=== PATIENT | male | born 1965 | race Caucasian/White ===

== ENCOUNTER 2019-12-25 13:15 | Inpatient (IN) ==
[2019-12-25] MEDS ORDERED: *HR* Heparin 5,000 UNIT/ML VIAL IVP PRN ×2 (13:28)
[2019-12-25] MEDS ORDERED: *HR* Heparin 5,000 UNIT/ML VIAL IVP ONE (13:28)
[2019-12-25] MEDS ORDERED: *HR* Metoprolol 5 MG/5 ML VIAL IVP ONE (13:28)
[2019-12-25] MEDS ORDERED: Heparin 25,000UNIT/250ML 1/2NS 25,000 UNIT/250 ML IV.SOLN IVC SCH (13:30)
[2019-12-25] MEDS ORDERED: *HR* Ticagrelor 90 MG TABLET PO ONE (13:34)
[2019-12-25] MEDS ORDERED: Nitroglycerin 1,000 MCG/10 ML VIAL IV ONE (13:37)
[2019-12-25] MEDS ORDERED: Heparin 1,000 UNITS/500 mL 500 ML ONE (13:37)
[2019-12-25] MEDS ORDERED: 0.9 % Sodium Chloride 2,000 ML ONE (13:37)
[2019-12-25] MEDS ORDERED: *HR* Heparin 10,000 UNIT/10 ML VIAL ONE (13:37)
[2019-12-25] MEDS ORDERED: ISOVUE-370 200 ML INFUS..BTL ONE ×2 (13:37→14:10)
[2019-12-25 13:43] LABS: Hematocrit 46.8 % (37.5-50.1); Hemoglobin 15.2 g/dL (12.9-16.9); Mean Corpuscular HGB Conc 32.5 g/dL (31.6-35.5); Mean Corpuscular Hemoglobin 29.5 pg (28.0-33.3); Mean Corpuscular Volume 90.7 fL (83.0-100.0); Mean Platelet Volume 10.5 fL (9.4-12.4); Platelet Count 202 K/mcL (140-400); Red Blood Count 5.16 M/mcL (4.19-5.50); Red Cell Distribution Width 13.7 % (11.5-14.5); White Blood Count 9.5 K/mcL (4.3-11.1)
[2019-12-25] MEDS ORDERED: *HR* FentaNYL (PF) 100 MCG/2 ML VIAL ONE (13:54)
[2019-12-25] MEDS ORDERED: *HR* Midazolam HCl 2 MG/2 ML VIAL ONE (13:54)
[2019-12-25 13:55] LABS: Prothrombin Time 11.2 Seconds (9.4-12.1)
[2019-12-25 13:57] LABS: Heparin anti-factor XA UFH < 0.04 IU/mL (0.30-0.70)
[2019-12-25] MEDS ORDERED: Perflutren Lipid Microsphere 1.3 ML in 0.9 % Sodium Chloride 8.7 ML IVP PRN (14:15)
[2019-12-25] MEDS ORDERED: *HR* Ticagrelor 90 MG TABLET ONE (14:21)
[2019-12-25] MEDS ORDERED: *HR* Bivalirudin 250 MG VIAL IVC ONE ×3 (14:29→14:34)
[2019-12-25 15:36] LABS: Adenovirus Not Detected (Not Detect); Bordetella Pertussis Not Detected (Not Detect); Chlamydophila pneumoniae Not Detected (Not Detect); Coronavirus 229E Not Detected (Not Detect); Coronavirus HKU1 Not Detected (Not Detect); Coronavirus NL63 Not Detected (Not Detect); Coronavirus OC43 Not Detected (Not Detect); Human Metapneumovirus Not Detected (Not Detect); Human Rhinovirus/Enterovirus Not Detected (Not Detect); Influenza A Subtype 2009 H1 Not Detected (Not Detect); Influenza B Not Detected (Not Detect); Mycoplasma pneumoniae Not Detected (Not Detect); Parainfluenza Virus 1 Not Detected (Not Detect); Parainfluenza Virus 2 Not Detected (Not Detect); Parainfluenza Virus 3 Not Detected (Not Detect); Parainfluenza Virus 4 Not Detected (Not Detect); Respiratory Syncytial Virus Not Detected (Not Detect); SARS-CoV-2 Not Detected (Not Detect)
[2019-12-25] MEDS ORDERED: Nitroglycerin 0.4 MG TAB.SUBL SL PRN (15:47)
[2019-12-25] MEDS ORDERED: 0.9 % Sodium Chloride 1,000 ML IVC SCH (16:00)
[2019-12-25] MEDS ORDERED: Oxymetazoline Nasal SPRAY BOTTLE NS PRN (16:53)
[2019-12-25] MEDS ORDERED: *HR* Atropine Sulfate 1 MG/10 ML SYRINGE ONE (17:21)
[2019-12-25] MEDS ORDERED: 0.9 % Sodium Chloride 250 ML IVC SCH (20:15)
[2019-12-25] MEDS ORDERED: Morphine Sulfate 2 MG/ML SYRINGE IVP ONE (20:36)
[2019-12-25] MEDS ORDERED: Ondansetron 4 MG/2 ML VIAL ONE (20:48)
[2019-12-25] MEDS ORDERED: Ondansetron 4 MG/2 ML VIAL IVP ONE (20:56)
[2019-12-25] MEDS ORDERED: *HR* Ticagrelor 90 MG TABLET PO SCH (21:00)
[2019-12-25 21:08] LABS: Basophils % 0.1 %; Eosinophils % 0.3 %; Hematocrit 41.6 % (37.5-50.1); Hemoglobin 13.8 g/dL (12.9-16.9); Immature Granulocytes % 0.5 % (0-4); Lymphocytes # 2.1 K/mcL (0.6-4.6); Lymphocytes % 15.2 %; Mean Corpuscular HGB Conc 33.2 g/dL (31.6-35.5); Mean Corpuscular Hemoglobin 29.5 pg (28.0-33.3); Mean Corpuscular Volume 88.9 fL (83.0-100.0); Mean Platelet Volume 10.5 fL (9.4-12.4); Monocytes # 1.2 K/mcL (0.0-1.3); Monocytes % 8.6 %; Neutrophils # 10.2 K/mcL (1.6-8.9); Platelet Count 232 K/mcL (140-400); Red Blood Count 4.68 M/mcL (4.19-5.50); Segmented Neutrophils % 75.3 %; White Blood Count 13.5 K/mcL (4.3-11.1)
[2019-12-25] MEDS ORDERED: Ondansetron 4 MG/2 ML VIAL IVP SCH (22:45)
[2019-12-25] MEDS ORDERED: Ondansetron 4 MG/2 ML VIAL IVP PRN (22:50)
[2019-12-25] MEDS: Morphine Sulfate 2 MG/ML SYRINGE IVP PRN (22:53)
[2019-12-25] MEDS: lisinopriL 10 MG TABLET PO SCH (22:57)
[2019-12-25] MEDS: carvediloL 6.25 MG TABLET PO SCH (22:57)
[2019-12-26 00:25] LABS: Hematocrit 37.5 % (37.5-50.1); Hemoglobin 12.8 g/dL (12.9-16.9)
[2019-12-26] MEDS: ceFAZolin 1,000 MG in 0.9 % Sodium Chloride Mini Bag 100 ML IVP SCH ×4 (00:40→23:50)
[2019-12-26 06:10] LABS: Basophils % 0.1 %; Eosinophils % 0.1 %; Immature Granulocytes % 0.4 % (0-4); Lymphocytes # 2.2 K/mcL (0.6-4.6); Lymphocytes % 15.3 %; Mean Corpuscular HGB Conc 32.2 g/dL (31.6-35.5); Mean Corpuscular Hemoglobin 29.2 pg (28.0-33.3); Mean Corpuscular Volume 90.9 fL (83.0-100.0); Mean Platelet Volume 10.9 fL (9.4-12.4); Monocytes # 1.4 K/mcL (0.0-1.3); Monocytes % 9.9 %; Neutrophils # 10.6 K/mcL (1.6-8.9); Platelet Count 192 K/mcL (140-400); Red Blood Count 4.07 M/mcL (4.19-5.50); Red Cell Distribution Width 14.1 % (11.5-14.5); Segmented Neutrophils % 74.2 %; White Blood Count 14.3 K/mcL (4.3-11.1)
[2019-12-26 06:12] LABS: Hemoglobin 11.9 g/dL (12.9-16.9)
[2019-12-26 06:36] LABS: BUN/Creatinine Ratio 34 (6-26); Blood Urea Nitrogen 30 mg/dL (6-20); Calcium 8.3 mg/dL (8.6-10.3); Carbon Dioxide 21 mEq/L (23-29); Chloride 107 mEq/L (98-107); Chol/HDL Ratio 4.8 (0-4.9); Glucose 111 mg/dL (70-105); Osmolality,Calculated 293 (280-300); Potassium 3.5 mEq/L (3.5-5.1); Sodium 138 mEq/L (136-145); eGFR For African Americans > 60 (> 60); eGFR For Non-African Americans > 60 (> 60)
[2019-12-26] MEDS ORDERED: *HR* Metoprolol 5 MG/5 ML VIAL IVP ONE (08:35)
[2019-12-26] MEDS ORDERED: lisinopriL 5 MG TABLET PO SCH (09:00)
[2019-12-26] MEDS: *HR* Ticagrelor 90 MG TABLET PO SCH ×3 (09:05→19:55)
[2019-12-26] MEDS: Aspirin 81 MG TAB.CHEW PO SCH ×2 (09:11→09:26)
[2019-12-26] MEDS: lisinopriL 10 MG TABLET PO SCH (09:26)
[2019-12-26] MEDS: carvediloL 6.25 MG TABLET PO SCH ×2 (09:26→16:22)
[2019-12-26] MEDS: Morphine Sulfate 2 MG/ML SYRINGE IVP PRN ×3 (11:57→19:58)
[2019-12-26 15:22] LABS: Hematocrit 34.4 % (37.5-50.1); Hemoglobin 11.1 g/dL (12.9-16.9)
[2019-12-27 05:42] LABS: Hematocrit 31.3 % (37.5-50.1); Hemoglobin 10.2 g/dL (12.9-16.9); Mean Corpuscular HGB Conc 32.6 g/dL (31.6-35.5); Mean Corpuscular Hemoglobin 30.4 pg (28.0-33.3); Mean Corpuscular Volume 93.2 fL (83.0-100.0); Mean Platelet Volume 11.2 fL (9.4-12.4); Platelet Count 155 K/mcL (140-400); Red Blood Count 3.36 M/mcL (4.19-5.50); Red Cell Distribution Width 14.4 % (11.5-14.5); White Blood Count 14.6 K/mcL (4.3-11.1)
[2019-12-27 06:02] LABS: BUN/Creatinine Ratio 16 (6-26); Blood Urea Nitrogen 13 mg/dL (6-20); Calcium 8.5 mg/dL (8.6-10.3); Carbon Dioxide 24 mEq/L (23-29); Chloride 104 mEq/L (98-107); Glucose 106 mg/dL (70-105); Osmolality,Calculated 283 (280-300); Potassium 3.7 mEq/L (3.5-5.1); Sodium 136 mEq/L (136-145); eGFR For African Americans > 60 (> 60); eGFR For Non-African Americans > 60 (> 60)
[2019-12-27 06:07] LABS: Troponin I 13.43 ng/mL (< 0.04)
[2019-12-27] MEDS: carvediloL 6.25 MG TABLET PO SCH ×2 (08:12→16:15)
[2019-12-27] MEDS: ceFAZolin 1,000 MG in 0.9 % Sodium Chloride Mini Bag 100 ML IVP SCH ×3 (08:12→23:17)
[2019-12-27] MEDS: Aspirin 81 MG TAB.CHEW PO SCH (08:12)
[2019-12-27] MEDS: *HR* Ticagrelor 90 MG TABLET PO SCH ×2 (08:13→19:37)
[2019-12-27] MEDS: lisinopriL 10 MG TABLET PO SCH (08:13)
[2019-12-27] MEDS ORDERED: Saline Nasal Spray 44 ML BOTTLE NS SCH (09:30)
[2019-12-27] MEDS ORDERED: Ondansetron 4 MG/2 ML VIAL IVP PRN (10:56)
[2019-12-27] MEDS ORDERED: Morphine Sulfate 2 MG/ML SYRINGE IVP PRN (10:56)
[2019-12-27] MEDS ORDERED: Nitroglycerin 0.4 MG TAB.SUBL SL PRN (10:56)
[2019-12-27] MEDS ORDERED: Oxymetazoline Nasal SPRAY BOTTLE NS PRN (10:56)
[2019-12-27] MEDS ORDERED: carvediloL 6.25 MG TABLET PO ONE ×2 (11:15→17:00)
[2019-12-27] MEDS: Saline Nasal Spray 44 ML BOTTLE NS SCH ×2 (15:24→19:37)
[2019-12-27] MEDS ORDERED: carvediloL 6.25 MG TABLET PO SCH (17:00)
[2019-12-28 04:52] LABS: Hematocrit 30.1 % (37.5-50.1); Hemoglobin 9.7 g/dL (12.9-16.9); Mean Corpuscular HGB Conc 32.2 g/dL (31.6-35.5); Mean Corpuscular Hemoglobin 29.9 pg (28.0-33.3); Mean Corpuscular Volume 92.9 fL (83.0-100.0); Mean Platelet Volume 11.1 fL (9.4-12.4); Platelet Count 149 K/mcL (140-400); Red Blood Count 3.24 M/mcL (4.19-5.50); White Blood Count 12.4 K/mcL (4.3-11.1)
[2019-12-28 05:14] LABS: BUN/Creatinine Ratio 15 (6-26); Blood Urea Nitrogen 12 mg/dL (6-20); Calcium 8.2 mg/dL (8.6-10.3); Carbon Dioxide 22 mEq/L (23-29); Chloride 106 mEq/L (98-107); Glucose 95 mg/dL (70-105); Osmolality,Calculated 282 (280-300); Potassium 3.9 mEq/L (3.5-5.1); Sodium 136 mEq/L (136-145); eGFR For African Americans > 60 (> 60); eGFR For Non-African Americans > 60 (> 60)
[2019-12-28] MEDS: carvediloL 6.25 MG TABLET PO SCH (07:35)
[2019-12-28] MEDS: *HR* Ticagrelor 90 MG TABLET PO SCH (07:35)
[2019-12-28] MEDS: ceFAZolin 1,000 MG in 0.9 % Sodium Chloride Mini Bag 100 ML IVP SCH (07:36)
[2019-12-28] MEDS: Saline Nasal Spray 44 ML BOTTLE NS SCH (07:36)
[2019-12-28 07:44] VITALS: BP 121/74
[2019-12-28] MEDS ORDERED: lisinopriL 10 MG TABLET PO SCH (09:00)
[2019-12-28] MEDS ORDERED: Aspirin 81 MG TAB.CHEW PO SCH (09:00)
== END 2019-12-28 10:15 | disposition home or self-care (01) | DRG 247 ==
LOC: EMEROOARM 13:15 → 2NNU 14:47 → ICNU 19:31
PROVIDERS: ADMIT Internal Medicine Interventional Cardiology; ATTEND Internal Medicine Interventional Cardiology

== ENCOUNTER 2019-12-30 14:58 | Observation (INO) ==
[2019-12-30] MEDS ORDERED: *HR* Promethazine 25 MG/ML VIAL IVP PRN (15:32)
[2019-12-30] MEDS ORDERED: Acetaminophen 325 MG TABLET PO PRN (15:32)
[2019-12-30] MEDS ORDERED: Naloxone 0.4 MG/ML INJ IVP PRN (15:32)
[2019-12-30] MEDS ORDERED: Nitroglycerin 0.4 MG TAB.SUBL SL PRN (15:33)
[2019-12-30 16:05] LABS: INR 1.2; Prothrombin Time 13.4 Seconds (9.4-12.1)
[2019-12-30 16:10] LABS: Basophils % 0.2 %; Eosinophils # 0.2 K/mcL (0.0-0.6); Eosinophils % 1.8 %; Hematocrit 29.2 % (37.5-50.1); Hemoglobin 9.5 g/dL (12.9-16.9); Immature Granulocytes % 0.4 % (0-4); Lymphocytes # 1.4 K/mcL (0.6-4.6); Lymphocytes % 13.9 %; Mean Corpuscular HGB Conc 32.5 g/dL (31.6-35.5); Mean Corpuscular Hemoglobin 30.2 pg (28.0-33.3); Mean Corpuscular Volume 92.7 fL (83.0-100.0); Mean Platelet Volume 10.6 fL (9.4-12.4); Monocytes # 1.2 K/mcL (0.0-1.3); Monocytes % 12.3 %; Neutrophils # 7.1 K/mcL (1.6-8.9); Platelet Count 248 K/mcL (140-400); Red Blood Count 3.15 M/mcL (4.19-5.50); Red Cell Distribution Width 13.8 % (11.5-14.5); Segmented Neutrophils % 71.4 %
[2019-12-30] MEDS ORDERED: *HR* LORazepam 2 MG/ML VIAL IVP ONE (16:12)
[2019-12-30 16:26] LABS: BUN/Creatinine Ratio 17 (6-26); Blood Urea Nitrogen 15 mg/dL (6-20); Calcium 9.4 mg/dL (8.6-10.3); Carbon Dioxide 27 mEq/L (23-29); Chloride 106 mEq/L (98-107); Glucose 100 mg/dL (70-105); Osmolality,Calculated 287 (280-300); Potassium 4.3 mEq/L (3.5-5.1); Sodium 138 mEq/L (136-145); eGFR For African Americans > 60 (> 60); eGFR For Non-African Americans > 60 (> 60)
[2019-12-30] MEDS ORDERED: *HR* OxyCODONE Immed Rel 5 MG TABLET PO PRN (17:01)
[2019-12-30 18:07] LABS: Ferritin 192 ng/mL (20-250)
[2019-12-30] MEDS ORDERED: Oxymetazoline Nasal SPRAY BOTTLE NS ONE (22:04)
[2019-12-30] MEDS ORDERED: *HR* Labetalol 20 MG/4 ML SYRINGE IVP PRN (22:10)
[2019-12-30] MEDS ORDERED: Morphine Sulfate 2 MG/ML SYRINGE IVP PRN (22:10)
[2019-12-30] MEDS ORDERED: Ondansetron 4 MG/2 ML VIAL IVP PRN (22:10)
[2019-12-30] MEDS ORDERED: Ondansetron 4 MG/2 ML VIAL ONE (22:13)
[2019-12-30] MEDS ORDERED: *HR* Succinylcholine 200 MG/10 ML VIAL IVP ONE (22:13)
[2019-12-30] MEDS ORDERED: Lidocaine HCL 4 ML Topical Solution (Laryng-O-Jet Kit Sterile Pak) TP ONE (22:13)
[2019-12-30] MEDS ORDERED: *HR* Etomidate 40 MG/20 ML VIAL IVP ONE (22:13)
[2019-12-30] MEDS ORDERED: Dexamethasone 4 MG/ML VIAL ONE (22:13)
[2019-12-30] MEDS ORDERED: Acetaminophen IV 1,000 MG/100 ML INFUS..BTL ONE (22:15)
[2019-12-30] MEDS ORDERED: Famotidine 20 MG/2 ML VIAL ONE (22:15)
[2019-12-30] MEDS ORDERED: *HR* FentaNYL (PF) 100 MCG/2 ML VIAL ONE ×2 (22:32→22:49)
[2019-12-30] MEDS ORDERED: *HR* Midazolam HCl 2 MG/2 ML VIAL ONE (22:32)
[2019-12-30] MEDS ORDERED: *HR* Rocuronium Bromide 50 MG/5 ML VIAL ONE (22:34)
[2019-12-30] MEDS ORDERED: *HR* PHENYLEPHRINE 1,000 MCG/10 ML SYRINGE IVP ONE (22:36)
[2019-12-30] MEDS ORDERED: EPHEDrine 50 MG/ML VIAL ONE (22:54)
[2019-12-31] MEDS: *HR* Ticagrelor 90 MG TABLET PO SCH ×2 (00:53→09:20)
[2019-12-31] MEDS: cephALEXin 500 MG CAPSULE PO SCH ×2 (00:53→09:21)
[2019-12-31] MEDS: carvediloL 25 MG TABLET PO SCH ×2 (00:56→09:18)
[2019-12-31 05:47] LABS: Hematocrit 30.4 % (37.5-50.1); Hemoglobin 9.9 g/dL (12.9-16.9); Mean Corpuscular HGB Conc 32.6 g/dL (31.6-35.5); Mean Corpuscular Hemoglobin 30.6 pg (28.0-33.3); Mean Corpuscular Volume 93.8 fL (83.0-100.0); Mean Platelet Volume 10.8 fL (9.4-12.4); Platelet Count 236 K/mcL (140-400); Red Blood Count 3.24 M/mcL (4.19-5.50); Red Cell Distribution Width 13.7 % (11.5-14.5); White Blood Count 11.5 K/mcL (4.3-11.1)
[2019-12-31] MEDS ORDERED: Aspirin 81 MG TAB.CHEW PO SCH (09:00)
[2019-12-31] MEDS ORDERED: lisinopriL 10 MG TABLET PO SCH (09:00)
[2019-12-31 11:35] VITALS: BP 118/66
== END 2019-12-31 16:00 | disposition home or self-care (01) ==
LOC: 3BNU → SUATTDRO 15:17
PROVIDERS: ADMIT Internal Medicine; ATTEND Student in an Organized Health Care Education/Training Program